=== PATIENT | female | born 1960 | race Caucasian/White ===

== ENCOUNTER 2024-01-01 11:27 | Emergency (ER) | payer OTHER, SELFPAY ==
[2024-01-01 11:54] VITALS: BP 197/103; PULSE 56; RESP 16; TEMP 36.9; O2SAT 99; BMI 32.3
--- NOTE | 2024-01-01 12:25 | XR_ITS ---
Patient: CHELSIE MILLS Facility:?[facility] RIS Patient ID:?[id number] Site Patient ID:?[id number]. Site :?[id number] Study:?XRay-Chest PA & LATERAL-01/01/2024 12:48:23 PM Ordering Physician:SANDY Final Report: INDICATION: Chest pain. TECHNIQUE: Chest 2 views. COMPARISON: None. FINDINGS: Cardiovascular and mediastinum: Cardiomediastinal silhouette is within normal limits Lungs and pleural spaces: Lungs are clear. No sign of pleural effusion. No pneumothorax. Bones and soft tissues: Left neck and supraclavicular region clips, likely related to prior surgery. Otherwise, no significant findings. IMPRESSION: No acute cardiopulmonary process identified. Dictated by Han Malone MD @ 01/01/2024 12:53:11 PM Signed by:?Han Malone MD @01/01/2024 12:53:11 PM (Electronic Signature)
[2024-01-01 12:44] LABS: Basophils Absolute Auto 0.05 K/uL (0.00-0.30); Basophils Percent Auto 0.8 % (0.0-3.0); Eosinophils Absolute Auto 0.41 K/uL (0.00-0.50); Eosinophils Percent Auto 6.3 % (0.0-7.0); Hematocrit 40.1 % (33.0-51.0); Hemoglobin* 13.2 gm/dL (12.0-16.0); Immature Granulocytes Abs Auto 0.01 K/uL (0.00-0.30); Immature Granulocytes Pct Auto 0.2 %; Lymphocytes Percent Auto 21.6 % (20-44); Mean Corpuscular HGB Conc 33 gm/dL (32-36); Mean Corpuscular Hemoglobin 30 pg (26-34); Mean Corpuscular Volume 92 fL (80-100); Monocytes Percent Auto 6.9 % (0.0-11.0); Neutrophils Absolute Auto 4.16 K/uL (1.7-7.0); Neutrophils Percent Auto 64.2 % (42.0-72.0); Platelet Count* 206 K/uL (140-440); RDW Coefficient of Variation % 12.8 % (11.5-15.5); Red Blood Count 4.38 m/uL (4.00-5.20); White Blood Count* 6.48 K/uL (4.50-11.00)
[2024-01-01 12:53] LABS: Slide Review Reflex No
[2024-01-01 12:55] LABS: Chloride* 107 mmol/L (96-114); Potassium* 3.9 mmol/L (3.6-5.1); Sodium* 139 mmol/L (135-149)
[2024-01-01 12:58] LABS: Anion Gap 9 mEq/L (7-15); Blood Urea Nitrogen* 17 mg/dL (7-30); Carbon Dioxide* 23 mmol/L (20-32); Creatinine* 0.6 mg/dL (0.5-1.5); Est. Creatinine Clearance* 54.61; Estimated Glomerular Filt Rate 101 ml/min; Glucose* 96 mg/dL (60-115)
[2024-01-01 12:59] LABS: Calcium* 9.2 mg/dL (8.4-10.6)
--- NOTE | 2024-01-01 13:07 | ED.GENADULT ---
HPI - General Adult General Date Seen: 01/01/24 Chief complaint: Weakness Stated complaint: elevated bp Time Seen by Provider: 01/01/24 11:29 Source: patient Mode of arrival: ambulatory Limitations: no limitations History of Present Illness HPI narrative: Patient is a 63-year-old female with no pertinent medical problems presenting to the emergency department for hypertension. She states yesterday while she was walking quickly into work she developed a 2-3 sec episode of chest tightness. Symptoms then went away and she has never had symptoms like this before. No history of heart disease. Since then she has just been feeling off so she checked her blood pressure and it was elevated yesterday night at 160s over 100. Usually she has a normal blood pressure and does not take any blood pressure medications. She continues to feel off and says she has a tingling sensation in both her arms. Has not had any further chest pain. She just wants to make sure nothing else is going on. Denies lightheadedness, dizziness, shortness of breath, weakness, numbness, vision changes, abdominal pain. No other concerns noted at this time. Related Data Allergies Allergy/AdvReac Type Severity Reaction Status Date / Time codeine Allergy Intermediate Rash Verified 01/01/24 11:59 prochlorperazine AdvReac Severe Rash Verified 01/01/24 11:59 [From Compazine] Review of Systems Status of ROS: Reports: 10 or more systems reviewed and unremarkable except as noted in History and below [facility] Social History Smoking Status: Never smoker Do you use any of these nicotine containing products: None Second hand tobacco smoke exposure: No How often do you have a drink containing alcohol: never How often do you have six or more drinks on one occasion: Never AUDIT-C Alcohol total score: 0 Non-prescribed substance use: denies use service: No Exam Narrative: Exam Narrative: Const: Well-nourished, Well-developed, in no distress Eyes: PERRL, no conjunctival injection, and symmetrical lids HENT: Atraumatic external nose and ears. Moist mucous membranes. Neck: Symmetric, trachea midline, No thyromegaly. CVS: RRR, No murmurs or gallops. Peripheral pulses 2+ and equal in all extremities RESP: Unlabored respiratory effort. Clear to auscultation bilaterally. GI: Nontender/Nondistended, No rebound or guarding. MSK:Extremities w/o deformity, Normal Active ROM Skin: Warm, Dry. No rashes or lesions. Neuro: Normal Muscle tone, No focal neurological deficits. Psych: Awake, Alert, & Oriented x3. Appropriate mood and affect. Const: Vital Signs, click to edit/add: Vital Signs - 24 hr 01/01/24 11:54 Temperature 98.4 F Pulse Rate [Right Pulse Oximeter] 56 L Respiratory Rate 16 Blood Pressure [Le ft Upper Arm] 197/103 H Pulse Oximetry 99 Oxygen Delivery Me thod Room Air Course Vital Signs Vital signs: Initial Vital Signs Temperature 98.4 F 01/01/24 11:54 Temperature Source Temporal Artery Scan 01/01/24 11:54 Pulse Rate 56 L 01/01/24 11:54 Pulse Rhythm Regular 01/01/24 11:54 Pulse Strength 3+ Normal 01/01/24 11:54 Respiratory Rate 16 01/01/24 11:54 Blood Pressure 197/103 H 01/01/24 11:54 Blood Pressure Mean 134 H 01/01/24 11:54 Blood Pressure Position Sitting 01/01/24 11:54 Pulse Oximetry 99 01/01/24 11:54 Oxygen Delivery Method Room Air 01/01/24 11:54 Vital Signs Temperature 98.4 F 01/01/24 11:54 Pulse Rate 56 L 01/01/24 11:54 Respiratory Rate 16 01/01/24 11:54 Blood Pressure 197/103 H 01/01/24 11:54 Pulse Oximetry 99 01/01/24 11:54 Oxygen Delivery Method Room Air 01/01/24 11:54 Temperature 98.4 F 01/01/24 11:54 Pulse Rate 56 L 01/01/24 11:54 Respiratory Rate 16 01/01/24 11:54 Blood Pressure 197/103 H 01/01/24 11:54 Pulse Oximetry 99 01/01/24 11:54 Oxygen Delivery Method Room Air 01/01/24 11:54 Medical Decision Making MDM Narrative Medical decision making narrative: Patient is 63-year-old female presenting to emergency department for high blood pressure. She was having some chest pain yesterday that occurred when she was moving quickly to her work from her car that resolved immediately. Or than that she does have some tingling sensation at arms that comes and goes but she states it is hard to describe. Since she was having chest pain yesterday and has this new hypertension we will do a workup on her including EKG, CBC, BMP, troponin. She has also says they recently adjusted her thyroid medicine and a TSH with reflex T4 was ordered. Patient's EKG shows no concerning abnormalities. Troponins within normal limits. Chest x-ray reviewed by myself and the radiologist shows no concerning abnormalities. CBC and BMP showed no concerning findings. She continues to be otherwise asymptomatic in the emergency department. TSH was low which was expected considering her hypothyroidism. T4 is still pending we will call her with results of his at normal. I do not believe we need to start her on any blood pressure medicine in the emergency department and told her to check her blood pressure over the weekend and if it is still high follow up with her primary care provider. She understands and agrees with this plan Lab Data Labs: Lab Results 01/01/24 01/01/24 Range/Units 12:25 12:32 WBC 6.48 (4.50-11.00) K/uL RBC 4.38 (4.00-5.20) m/uL Hgb 13.2 (12.0-16.0) gm/dL Hct 40.1 (33.0-51.0) % MCV 92 (80-100) fL MCH 30 (26-34) pg MCHC 33 (32-36) gm/dL RDW Coeff of Kenyatta 12.8 (11.5-15.5) % Plt Count 206 (140-440) K/uL Neut % (Auto) 64.2 (42.0-72.0) % Lymph % (Auto) 21.6 (20-44) % Ector % (Auto) 6.9 (0.0-11.0) % Eos % (Auto) 6.3 (0.0-7.0) % Baso % (Auto) 0.8 (0.0-3.0) % Neut # (Auto) 4.16 (1.7-7.0) K/uL Lymph # (Auto) 1.40 (0.90-2.90) K/uL Ector # (Auto) 0.40 (0.00-0.90) K/UL Eos # (Auto) 0.41 (0.00-0.50) K/uL Baso # (Auto) 0.05 (0.00-0.30) K/uL Abs Immat Gran (auto) 0.01 (0.00-0.30) K/uL Imm/Tot Granulo (auto) 0.2 % Sodium 139 (135-149) mmol/L Potassium 3.9 (3.6-5.1) mmol/L Chloride 107 (96-114) mmol/L Carbon Dioxide 23 (20-32) mmol/L Anion Gap 9 (7-15) mEq/L BUN 17 (7-30) mg/dL Creatinine 0.6 (0.5-1.5) mg/dL Estimated Creat Clear 54.61 Estimated GFR 101 ml/min Glucose 96 (60-115) mg/dL Calcium 9.2 (8.4-10.6) mg/dL TSH 0.195 L (0.270-4.200) uIU/mL POC Troponin I 0.00 L (0.01-0.04) ng/ml Imaging Data Chest x-ray: Radiologist's impression: No acute cardiopulmonary process identified. Dictated by Han Malone MD @ 01/01/2024 12:53:11 PM ECG Data Attestation: I personally reviewed and interpreted this ECG as follows: Prior ECG tracings: not available for review Interpretation: Sinus bradycardia rate 59 beats per minute, normal intervals, normal axis, no ST or T-wave abnormalities Discharge Plan Discharge Clinical Impression: Hypertension Qualifiers: Hypertension type: unspecified Qualified Code(s): I10 - Essential (primary) hypertension Patient Disposition: Home, Self-Care Condition: Stable Instructions: Hypertension (ED) Additional Instructions: Follow-up with your primary care provider about your blood pressure. Return to emergency department for new or worsening symptoms. Follow Up/Referrals: Arleth Bradshaw PA-C [Primary Care Provider] - Stand Alone Forms: [employer] Info Instructions
[2024-01-01 13:49] LABS: TSH With Reflex to FT4* 0.195 uIU/mL (0.270-4.200)
[2024-01-01 14:18] LABS: Free T4 Free Thyroxine* 1.75 ng/dL (0.70-1.85)
[2024-01-01 14:34] VITALS: BP 146/96; PULSE 60; RESP 16; O2SAT 97
== END 2024-01-01 14:35 | disposition home or self-care (01) ==
PROVIDERS: Emergency Provider Student in an Organized Health Care Education/Training Program; PCP Student in an Organized Health Care Education/Training Program
DX: I10 Essential (primary) hypertension (principal)
CPT/HCPCS: 36415; 71046; 80048; 84439; 84443; 84484; 85025; 93005; 99283; 99284

== ENCOUNTER 2024-04-13 10:12 | Day surgery (SDC) | payer OTHER, SELFPAY ==
[2024-04-13] VITALS (25 sets, daily range): BP systolic 106–153; BP diastolic 68–93; PULSE 46–69; RESP 12–20; TEMP 35.9–36.8; O2SAT 93–100; BMI 32.8
[2024-04-13] MEDS: ACETAMINOPHEN 500 MG TABLET 1000 MG PO ×2 (10:16→17:31)
[2024-04-13] MEDS: OXYCODONE (CR) 10 MG TAB.ER.12H PO (10:20)
[2024-04-13] MEDS: SODIUM CHLORIDE 0.9 % (FLUSH) 10 ML SYRINGE IVF (11:00)
[2024-04-13] MEDS: LACTATED RINGERS 1000 ML 1,000 ML 100 ML IV ×2 (11:00→12:48)
[2024-04-13] MEDS: fentaNYL 100 MCG/2 ML inj IVP (11:27)
[2024-04-13] MEDS: MIDAZOLAM HCL 1 MG/ML inj IVP (11:27)
--- NOTE | 2024-04-13 11:32 | SUR.PREOP ---
TIME?OUT:?1125, left knee PT/RN/MDA?VERIFICATION?OF?SURGICAL?SITE,?PROCEDURE,?AND?CONSENT OBTAINED?PRIOR?TO?INVASIVE?PROCEDURE.
[2024-04-13] MEDS: CEFAZOLIN 2 GM in 0.9 % SODIUM CHLORIDE Mini-bag 100 ML IVPB ×2 (11:36→17:31)
[2024-04-13] MEDS: TRANEXAMIC ACID 100 MG/ML INJ 1000 MG IV (11:38)
--- NOTE | 2024-04-13 11:45 | P.NB_ITS ---
Nerve Block Nerve Block Time Seen by Provider: 11:27 Date Seen: 04/13/24 Type of block requested by surgeon for post-operative analgesia: geniculars Side: left Time out performed: Yes Verification of patient name: Yes Verification of date of : Yes Site marking: site marked Name of person performing procedure: Jose Continuous monitoring Was continuous monitoring of O2 sat, B/P, groundwater monitoring technician, recorded every 15 minutes?: Yes Procedure Checklist: sterile prep, needles and gloves Medications given in 5ml increments after negative aspiration: Ropivicaine %: 0.5 mL: 9 Needle gauge: 25 Patient tolerated procedure well: Yes Block Charges Block Charge (with Pro Fee): Genicular Nerve Block Use of Ultrasound Machine for Block: No
--- NOTE | 2024-04-13 11:45 | W.PM.NB ---
Nerve Block Nerve Block Time Seen by Provider: 11:27 Date Seen: 04/13/24 Type of block requested by surgeon for post-operative analgesia: adductor canal Side: left Time out performed: Yes Verification of patient name: Yes Verification of date of : Yes Site marking: site marked Name of person performing procedure: Jose Continuous monitoring Was continuous monitoring of O2 sat, B/P, body rolling machine tender, recorded every 15 minutes?: Yes Procedure Checklist: sterile prep, needles and gloves Ultrasound guided. Images saved: Yes Medications given in 5ml increments after negative aspiration: Ropivicaine %: 0.5 mL: 20 Needle gauge: 20 Decadron (mg): 10 Precedex (mcg): 25 Patient tolerated procedure well: Yes Additional comments: Needle noted adjacent to nerve Block Charges Block Charge (with Pro Fee): Femoral Nerve Use of Ultrasound Machine for Block: Yes- US Guidance/pain block
--- NOTE | 2024-04-13 11:49 | W.PM.H&PU ---
History & Physical Update History & Physical Update H&P Reviewed and patient assessed: No changes noted
--- NOTE | 2024-04-13 13:09 | P.ORPRC_ITS ---
Procedure Note Date of procedure: 04/13/24 Procedure: PREOPERATIVE DIAGNOSIS: 1. Left knee osteoarthritis, primary, severe POSTOPERATIVE DIAGNOSIS: 1. Left knee osteoarthritis, primary, severe PROCEDURE: 1. Left total knee arthroplasty-subvastus approach SURGEON: Dave Treviño MD. MICROBIOLOGY QUALITY CONTROL TECHNICIAN: MARIAM House - Of note, a skilled talent acquisition assistant was critical for this case to aid in patient positioning, tissue retraction, limb manipulation/positioning, and closure. ANESTHESIA: Spinal anesthetic EBL: 50ml IMPLANTS: DePuy J&J uncemented femur/tibia, cemented patella TKA - Attune Press fit PS femur size 7, size 6 tibia, 5 poly spacer, 35 mm cemented patella TOURNIQUET: 90 min at 300 torr COMPLICATIONS: None evident INDICATIONS: The patient is a pleasant 63-year-old female who has experienced severe left knee pain and difficulty bearing weight. Workup included x-rays which revealed severe osteoarthrosis in the knee. Given the deformity, the dysfunction, and the pain, as well as the failure of nonoperative management, recommendation was made for surgery. FINDINGS: Full-thickness chondral loss diffusely throughout the medial, lateral, and patellofemoral compartments. Large osteophytes. Moderate to large effusion upon entering the joint. DESCRIPTION OF PROCEDURE: Following a thorough discussion of risks, benefits, and alternatives consent was obtained and the left knee was marked. The patient was brought to the operating room and placed supine on the operating table. Induction of anesthesia was undertaken. 2 g IV Ancef and 1 g tranexamic acid was administered within 1 hr of incision preoperatively. Proper time-out was performed identifying proper patient, site, procedure. The operative extremity was prepped and draped in the appropriate sterile fashion using ChloraPrep after the patient was positioned supine with all bony prominences well padded. A longitudinal, anterior, midline skin incision was made starting approximately 3cm proximal to the superior pole of the patella and advanced distal to the tibial tubercle. A sub vastus approach was utilized. After mobilizing the patella, retropatellar fatpad was resected and the synovium in the suprapatellar pouch excised to visualize the anterior femoral cortex. We began with cutting the patella to help improve mobility of this patella and quad tendon. The patella was initially measured and found have a thickness of 26 mm. It was resected back to approximately 16 mm. Femoral preparation was performed via an intramedullary guide. Step drill allowed access into the femoral canal. The distal cutting guide was placed with 5? of valgus and 11 mm cut on the distal femur due to a 5-7 degree flexion contracture. Femur was sized using a anterior referencing guide in 3? of external rotation. This found have a best fit with the sizing noted above. The 4 in 1 cutting block was then placed, and the distal femur shaped accordingly. The box cut was then created and the trial implant inserted to confirm appropriate fit. We turned our attention to the proximal tibia. Extramedullary guide was utilized for cutting with the goal of being 90 degree cut from the mechanical axis of the tibia in the varus/valgus plane utilizing tibial crest as the primary alignment. Initially a 2 mm resection was performed from the medial tibial plateau. Ultimately, balancing was achieved in both flexion and extension in both varus and valgus. The knee was able to achieve full extension comfortably. It was sized to be a best fit with as noted above. The patella prep was completed with drilling and a trial placed. At this stage, trial implants were removed, the tibia and femoral components were opened and inserted. Thereafter, the patella was thoroughly irrigated normal saline and dried. The cement was previously mixed on the back table and cement placed followed by the implant. This was clamped and allowed remained stable until the cement cured. The real poly spacer was opened and inserted. All extra cement was removed, and a 3 min Betadine soak performed. Finally, a final irrigation round with normal saline was performed. Closure performed with 0 PDS and #0 Stratafix for the quad tendon/retinaculum. 2-0 Vicryl/Stratafix for the subcutaneous and 4-0 Monocryl for subcuticular closure. Dressings were applied and the patient was awoken from anesthesia after the tourniquet deflated and transferred the PACU in stable condition. A skilled talent acquisition assistant was critical for this case to aid in patient positioning, tissue retraction, bone exposure, limb manipulation/positioning, patient safety, and closure. PLAN: 1. Weight bear as tolerated operative extremity. 2. 23 hr perioperative antibiotics. 3. Ice. 4. PT/OT consults for ambulation assistance/mobility education. 5. Social work consult for discharge planning. 6. DVT prophylaxis with at SCDs, Pedro Luis Hose, and aspirin twice daily.
--- NOTE | 2024-04-13 13:13 | CRLHL7_ITS ---
For Patients: As a result of the Cures Act, medical imaging exams and procedure reports are released immediately into your electronic medical record. You may view this report before your referring provider. If you have questions, please contact your health care provider. Indication: Postop Technique: Two views left knee Findings/Impression: Hardware from a left total knee arthroplasty is in satisfactory position. Bone alignment is normal. No sign of acute fracture. Postop changes are within normal limits. Dictated by Jens Cantrell MD @ 04/14/2024 2:11:02 PM (Electronically Signed)
--- NOTE | 2024-04-13 13:53 | W.ANESCHARGE ---
Anesthesia Charges Start Date/Time Anesthesia Start Date: 04/13/24 Anesthesia Start Time: 11:35 Stop Date/Time Anesthesia Stop Date: 04/13/24 Anesthesia Stop Time: 13:49
[2024-04-13] MEDS: fentaNYL 100 MCG/2 ML inj 50 MCG IVP (14:05)
--- NOTE | 2024-04-13 14:18 | W.ANESCHARGE ---
Anesthesia Charges Start Date/Time Anesthesia Start Date: 04/13/24 Anesthesia Start Time: 11:35 Stop Date/Time Anesthesia Stop Date: 04/13/24 Anesthesia Stop Time: 13:49
--- NOTE | 2024-04-13 15:00 | P.IMCN_ITS ---
Date of Consult Consult date: 04/13/24 Requesting Physician: Orthopedics Primary Care Provider: Arleth Bradshaw PA-C Consult Narrative Narrative: HOSPITALIST CONSULT PROCEDURE: Left total knee arthroplasty-subvastus approach SURGEON: Dave Treviño MD. ANESTHESIA: Spinal anesthetic EBL: 50ml COMPLICATIONS: None evident The hospital medicine team was asked by the orthopedic surgery team to manage the patient's post-op bradycardia (40's), hypothyroidism, hx of thyroid cancer and obesity. There have been no perioperative complications. Updated and reviewed the active medical problems, past medical history, past surgical history, social history, allergies and medications in our electronic EMR. PHYSICAL EXAM: CODE STATUS: FULL CODE CONSTITUTIONAL: Conversive, good historian. A/O. Knows setting and context. VITAL SIGNS: see record. HEENT: Normocephalic, atraumatic. PERRL, EOMI, conjunctivae pink, no scleral icterus. Ears and nose externally normal. Pharynx normal. NECK: No JVD. No carotid bruit, no thyromegaly, no adenopathy. CHEST: Clear to auscultation bilaterally HEART: S1 and S2 normal. rate about 50-55. ABDOMEN: Flat, soft, nontender. Normal bowel sounds. Moderately obese. EXTREMITIES: No edema. MUSCULOSKELETAL: left knee surgical dressing intact; no obvious bleeding or hematoma. NVI. NEURO: Cranial nerves intact. Mentation normal. Normal affect. SKIN: No rashes, petechiae, concerning changes PSYCHIATRIC: Mentation normal. INVESTIGATIONS: EMR Reviewed; Pre-OP Reviewed DISPOSITION: DVT: Agree with Ortho team decision - aspirin 81mg BID x 1 month GI: PO intake PFSH [facility] Medical History (Updated 04/13/24 @ 15:34 by Rosalind Barrera MD) Postablative hypothyroidism ?E89.0 - Postprocedural hypothyroidism (ICD-10) BMI 32.0-32.9,adult ?Z68.32 - Body mass index [BMI] 32.0-32.9, adult (ICD-10) Thyroid cancer (1986) ?C73 - Malignant neoplasm of thyroid gland (ICD-10) Snoring ?R06.83 - Snoring (ICD-10) Acute kidney failure, unspecified ?N17.9 - Acute kidney failure, unspecified (ICD-10) Surgical History (Updated 04/13/24 @ 15:18 by Rosalind Barrera MD) Status post radical dissection of neck ?Z98.890 - Other specified postprocedural states (ICD-10) Status post total left knee replacement ?Z96.652 - Presence of left artificial knee joint (ICD-10) Hx of myringotomy ?Z98.890 - Other specified postprocedural states (ICD-10) Hx of tubal ligation ?Z98.51 - Tubal ligation status (ICD-10) History of tonsillectomy and adenoidectomy ?Z90.89 - Acquired absence of other organs (ICD-10) History of thyroidectomy ?E89.0 - Postprocedural hypothyroidism (ICD-10) Social History (Reviewed 03/25/24 @ 08:40 by Mary Dennis ~ [facility], [facility]) What is your current living situation?: I presently have a place to live Problems where you live: no known problems In the past 12 months, utilities in danger of being shut off: no In past 12 months, lack of transportation kept you from medical appts, meetings, work, or getting things needed for daily living: no In the past 12 mos, have been you worried that your food would run out before you had money to buy more?: never true In the past 12 mos, the food you bought just didn't last and you didn't have money to buy more?: never true Smoking Status: Never smoker Do you use any of these nicotine containing products: None Second hand tobacco smoke exposure: No How often do you have a drink containing alcohol: never How often do you have six or more drinks on one occasion: Never AUDIT-C Alcohol total score: 0 Non-prescribed substance use: denies use service: No Meds Home Medications and Allergies Home Medications ?Medication ?Instructions ?Recorded ?Confirmed ?Type levothyroxine 137 mcg tablet 137 mcg PO DAILY 03/25/24 04/13/24 History triamcinolone acetonide 0.1 % 1 applic topical BID-TID 03/25/24 04/13/24 History topical cream Allergies Allergy/AdvReac Type Severity Reaction Status Date / Time codeine Allergy Intermediate Nausea Verified 04/13/24 10:20 prochlorperazine AdvReac Severe Rash Verified 04/13/24 10:20 [From Compazine] Exam Const: Vital Signs, click to edit/add: Vital Signs - 24 hr 04/13/24 10:45 04/13/24 11:25 04/13/24 11:30 Temperature 98.2 F Pulse Rate 62 55 L 57 L Respiratory Rate 20 20 14 Blood Pressure 145/89 H 153/87 H 138/74 Pulse Oximetry 96 96 95 Oxygen Delivery Me thod Room Air Nasal Cannula Nasal Cannula Oxygen Flow Rate 3 3 04/13/24 13:45 04/13/24 13:50 04/13/24 13:55 Temperature 97 F L Pulse Rate 60 60 69 Respiratory Rate 12 12 12 Blood Pressure 112/74 132/89 118/93 H Pulse Oximetry 93 94 98 Oxygen Delivery Me thod Room Air Room Air Room Air Oxygen Flow Rate 04/13/24 14:00 04/13/24 14:05 04/13/24 14:10 Temperature Pulse Rate 53 L 50 L 51 L Respiratory Rate 12 14 14 Blood Pressure 120/84 132/74 127/81 Pulse Oximetry 99 98 100 Oxygen Delivery Me thod Room Air Room Air Room Air Oxygen Flow Rate 04/13/24 14:15 Temperature 97 F L Pulse Rate 55 L Respiratory Rate 14 Blood Pressure 106/69 Pulse Oximetry 99 Oxygen Delivery Me thod Room Air Oxygen Flow Rate Assessment and Plan Assessment and plan (1) Status post total left knee replacement: Problem comment: Hospital medicine team is happy to follow thru to discharge; expect a routine post-op course 04/13/24 - Dr. Treviño Status: Acute (2) Postablative hypothyroidism: Problem comment: -continue home synthroid dosing. Status: Acute (3) Thyroid cancer: Problem comment: 1986. status post-left hemithyroidectomy and modified radial left neck dissection. post ablative hypothyroidism. Status: Acute (4) BMI 32.0-32.9,adult: Status: Acute (5) Bradycardia: Problem comment: likely physiologic + meds from surgery. 12 hours on residential monitor and ECG asymptomatic Status: Acute
--- NOTE | 2024-04-13 18:50 | PC.NURSE ---
Pt arrived from surgery at 1423. Pt alert and oriented. VSS- Pt bradycardic for first two hours post surgery. Pt had complaints of pain ranging from 2-3. Pt advanced to regular diet and tolerated well. Pt up to chair. Assist of one with gait belt. Pt?s family at bedside. Pt?s dressing is dry and intact.?
[2024-04-13] MEDS: SENNOSIDES 1 TAB TABLET 2 TAB PO (22:04)
[2024-04-13] MEDS: ASPIRIN 81 MG TABLET EC PO (22:04)
[2024-04-13] MEDS: LEVOTHYROXINE 25 MCG TABLET PO (22:05)
[2024-04-13] MEDS: LEVOTHYROXINE 112 MCG TABLET PO (22:05)
[2024-04-13] MEDS: OXYCODONE 5 MG TABLET PO (22:21)
[2024-04-14] MEDS: ACETAMINOPHEN 500 MG TABLET 1000 MG PO ×2 (00:26→05:36)
[2024-04-14 02:12] VITALS: BP 112/68; PULSE 69; RESP 16; TEMP 37.1; O2SAT 93
[2024-04-14] MEDS: CEFAZOLIN 2 GM in 0.9 % SODIUM CHLORIDE Mini-bag 100 ML IVPB ×2 (02:12→10:05)
[2024-04-14 06:26] LABS: Basophils Absolute Auto 0.01 K/uL (0.00-0.30); Basophils Percent Auto 0.1 % (0.0-3.0); Eosinophils Absolute Auto 0.01 K/uL (0.00-0.50); Eosinophils Percent Auto 0.1 % (0.0-7.0); Hematocrit 35.7 % (33.0-51.0); Hemoglobin* 11.6 gm/dL (12.0-16.0); Immature Granulocytes Abs Auto 0.03 K/uL (0.00-0.30); Immature Granulocytes Pct Auto 0.3 %; Lymphocytes Percent Auto 9.8 % (20-44); Mean Corpuscular HGB Conc 33 gm/dL (32-36); Mean Corpuscular Hemoglobin 30 pg (26-34); Mean Corpuscular Volume 93 fL (80-100); Monocytes Percent Auto 7.8 % (0.0-11.0); Neutrophils Percent Auto 81.9 % (42.0-72.0); Platelet Count* 207 K/uL (140-440); RDW Coefficient of Variation % 12.7 % (11.5-15.5); Red Blood Count 3.86 m/uL (4.00-5.20); White Blood Count* 10.72 K/uL (4.50-11.00)
[2024-04-14 06:28] LABS: Slide Review Reflex No
[2024-04-14 06:44] LABS: Potassium* 3.8 mmol/L (3.6-5.1); Sodium* 137 mmol/L (135-149)
[2024-04-14 06:47] LABS: Creatinine* 0.7 mg/dL (0.5-1.5); Est. Creatinine Clearance* 54.61; Estimated Glomerular Filt Rate 98 ml/min
[2024-04-14 06:48] LABS: Blood Urea Nitrogen* 17 mg/dL (7-30)
--- NOTE | 2024-04-14 06:53 | PC.NURSE ---
Pt alert and oriented x3. Afebrile. Pt reports 4/10 pain in left knee, pain managed with scheduled medications and cold pack. Pt's left knee dressing is CDI. Pt is up SBA with walker and gait belt, voiding, and tolerating a regular diet. Pt slept intermittently throughout night.
[2024-04-14 07:00] VITALS: O2SAT 98
[2024-04-14 07:40] VITALS: PULSE 61
[2024-04-14 07:59] VITALS: BP 108/69; PULSE 62; RESP 16; TEMP 37; O2SAT 97
[2024-04-14] MEDS: OXYCODONE 5 MG TABLET PO (08:00)
--- NOTE | 2024-04-14 08:41 | PM.ORPN ---
Subjective Subjective Date Seen: 04/14/24 Principal diagnosis: Status postop day 1 left total knee arthroplasty -press fit Interval history: Patient reports doing okay. No acute events over night. Pain present, managed effectively with scheduled and PRN medications, ice. States feeling a little bit woozy now after pain medication administration approximately 45 minutes ago. No associated dizziness, lightheadedness, or nausea with this symptom. DVT prophylaxis: 81 mg aspirin by mouth twice daily, SCDs, walking. Denies fevers, chills, aches, N/V, CP, SOB/TAYLOR, or lightheadedness. No flatus to date. Ortho Exam Narrative Exam Narrative: -Patient appears comfortable; no apparent acute distress -Alert and oriented times 3 -Operative knee mildly swollen; soft tissues supple; no ecchymosis; no erythematous streaking Warmth appropriate -Surgical dressing clean, dry, intact; no drainage. Far lateral proximal aspect of the bandage is coming off. -Bilateral calfs soft; no significant swelling, edema, tenderness, erythema, discoloration, warmth, or palpable cords -2+ DP/PT pulses, intact dermatomes and myotomes distally (5/5 strength) Const Vital Signs, click to edit/add: Vital Signs - 24 hr 04/13/24 10:45 04/13/24 11:25 04/13/24 11:30 Temperature 98.2 F Pulse Rate 62 55 L 57 L Pulse Rate [Right Pulse Oximeter] Respiratory Rate 20 20 14 Blood Pressure 145/89 H 153/87 H 138/74 Blood Pressure [Left Arm] Pulse Oximetry 96 96 95 Oxygen Delivery Method Room Air Nasal Cannula Nasal Cannula Oxygen Flow Rate 3 3 04/13/24 13:45 04/13/24 13:50 04/13/24 13:55 Temperature 97 F L Pulse Rate 60 60 69 Pulse Rate [Right Pulse Oximeter] Respiratory Rate 12 12 12 Blood Pressure 112/74 132/89 118/93 H Blood Pressure [Left Arm] Pulse Oximetry 93 94 98 Oxygen Delivery Method Room Air Room Air Room Air Oxygen Flow Rate 04/13/24 14:00 04/13/24 14:05 04/13/24 14:10 Temperature Pulse Rate 53 L 50 L 51 L Pulse Rate [Right Pulse Oximeter] Respiratory Rate 12 14 14 Blood Pressure 120/84 132/74 127/81 Blood Pressure [Left Arm] Pulse Oximetry 99 98 100 Oxygen Delivery Method Room Air Room Air Room Air Oxygen Flow Rate 04/13/24 14:15 04/13/24 14:23 04/13/24 14:30 Temperature 97 F L 97.5 F L 96.7 F L Pulse Rate 55 L 49 L 46 L Pulse Rate [Right Pulse Oximeter] Respiratory Rate 14 14 14 Blood Pressure 106/69 129/79 126/79 Blood Pressure [Left Arm] Pulse Oximetry 99 96 99 Oxygen Delivery Method Room Air Room Air Room Air Oxygen Flow Rate 0 0 04/13/24 14:45 04/13/24 14:49 04/13/24 15:00 Temperature 96.7 F L 96.7 F L Pulse Rate 47 L 48 L 48 L Pulse Rate [Right Pulse Oximeter] Respiratory Rate 14 16 Blood Pressure 121/68 134/78 Blood Pressure [Left Arm] Pulse Oximetry 100 94 Oxygen Delivery Method Room Air Room Air Oxygen Flow Rate 0 0 04/13/24 15:15 04/13/24 15:20 04/13/24 15:20 Temperature 96.8 F L Pulse Rate 52 L Pulse Rate [Right Pulse Oximeter] Respiratory Rate 16 14 Blood Pressure 141/87 H Blood Pressure [Left Arm] Pulse Oximetry 95 96 96 Oxygen Delivery Method Room Air Room Air Oxygen Flow Rate 0 0 04/13/24 16:00 04/13/24 16:30 04/13/24 17:30 Temperature 97.2 F L 97.7 F 97.5 F L Pulse Rate 57 L 54 L 60 Pulse Rate [Right Pulse Oximeter] Respiratory Rate 16 16 16 Blood Pressure 149/71 H 144/86 H 140/82 H Blood Pressure [Left Arm] Pulse Oximetry 100 98 96 Oxygen Delivery Method Room Air Room Air Room Air Oxygen Flow Rate 0 0 0 04/13/24 18:30 04/13/24 19:30 04/13/24 20:30 Temperature 98.1 F 98.3 F 98.3 F Pulse Rate 66 55 L 63 Pulse Rate [Right Pulse Oximeter] Respiratory Rate 16 20 18 Blood Pressure 125/75 123/72 124/80 Blood Pressure [Left Arm] Pulse Oximetry 93 96 96 Oxygen Delivery Method Room Air Room Air Oxygen Flow Rate 0 04/13/24 23:00 04/14/24 02:12 04/14/24 07:40 Temperature 97.7 F 98.7 F Pulse Rate 61 Pulse Rate [Right Pulse Oximeter] 64 69 Respiratory Rate 18 16 Blood Pressure Blood Pressure [Left Arm] 123/86 112/68 Pulse Oximetry 96 93 Oxygen Delivery Method Room Air Room Air Oxygen Flow Rate 0 04/14/24 07:59 Temperature 98.6 F Pulse Rate Pulse Rate [Right Pulse Oximeter] 62 Respiratory Rate 16 Blood Pressure Blood Pressure [Left Arm] 108/69 Pulse Oximetry 97 Oxygen Delivery Method Room Air Oxygen Flow Rate Assessment and Plan Assessment and plan (1) Status post total left knee replacement: Problem details: Hospital medicine team is happy to follow thru to discharge; expect a routine post-op course 04/13/24 - Dr. Treviño Status: Acute (2) Postablative hypothyroidism: Problem details: -continue home synthroid dosing. Status: Acute (3) Thyroid cancer: Problem details: 1986. status post-left hemithyroidectomy and modified radial left neck dissection. post ablative hypothyroidism. Status: Acute (4) BMI 32.0-32.9,adult: Status: Acute (5) Bradycardia: Problem details: likely physiologic + meds from surgery. 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 - PT/OT consult for education and assistance. - Social work consult for discharge planning - Prescribed analgesics as needed - DVT prophylaxis: 81 mg aspirin by mouth twice daily, bilateral knee high Pedro Luis Hose stockings and SCDs - Anticipation is for discharge to home with family 04/14/2024 if the patient remains medically stable, pain is controlled, and they are safe with mobilization. - Tegaderm applied to the postoperative bandage to ensure integrity
[2024-04-14] MEDS: ASPIRIN 81 MG TABLET EC PO (08:51)
[2024-04-14] MEDS: SENNOSIDES 1 TAB TABLET 2 TAB PO (08:51)
[2024-04-14 11:00] VITALS: BP 128/80
[2024-04-14] MEDS: 0.9 % SODIUM CHLORIDE 500 ML 500 ML 666 ML IV (11:10)
[2024-04-14] MEDS: HYDROCODONE-ACETAMIN 5-325 MG 1 TAB PO (12:24)
== END 2024-04-14 14:26 | disposition home or self-care (01) ==
LOC: OR 10:12 → MEDSURG 10:15
PROVIDERS: PCP Student in an Organized Health Care Education/Training Program; Visit Provider Orthopaedic Surgery Sports Medicine
PROC: (CPT 27447; principal; 2024-04-13 11:45)
DX: M17.12 Unilateral primary osteoarthritis, left knee (principal); G89.18 Other acute postprocedural pain; I97.191 Other postprocedural cardiac functional disturbances following other surgery; E66.9 Obesity, unspecified; Z68.32 Body mass index [BMI] 32.0-32.9, adult; E89.0 Postprocedural hypothyroidism; Z85.850 Personal history of malignant neoplasm of thyroid
CPT/HCPCS: 27447; 01402; 36415; 64447; 64454; 73560; 76942; 82565; 84132; 84295; 84520; 85025; 93005; 97110; 97116; 97161; 97165; 97530; A9270; C1776; J0690; J1100; J2250; J2405; J2704; J2795; J3010; J7030; J7120

== ENCOUNTER 2024-06-08 09:45 | Outpatient (RCR) | payer OTHER, SELFPAY | END 2024-09-07 14:20 | disposition home or self-care (01) | PROVIDERS: PCP Student in an Organized Health Care Education/Training Program; Visit Provider Orthopaedic Surgery Sports Medicine | DX: M17.12 Unilateral primary osteoarthritis, left knee (principal); Z96.652 Presence of left artificial knee joint; M25.562 Pain in left knee; Z74.09 Other reduced mobility; M62.81 Muscle weakness (generalized); R26.9 Unspecified abnormalities of gait and mobility; Z51.89 Encounter for other specified aftercare | CPT/HCPCS: 97110; 97140; 97161; 97164; 97535 ==